=== PATIENT | male | born 1975 | race Caucasian/White ===

== ENCOUNTER 2019-11-27 23:22 | Emergency (ER) | payer MEDICAID ==
[~2019-11-27] VITALS: Ht 180.3 cm; Wt 117.9 kg
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
[2019-11-27] MEDS ORDERED: KEPPRA500 MG ORAL (23:42)
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
[2019-11-28] MEDS ORDERED: HYDROcodone/Acetamin 5/325 tab ORAL ONE
[2019-11-28 00:36] VITALS: BP 115/75
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
[2019-11-28] MEDS ORDERED: NORCO 5-325 TA1 EACH ORAL (02:19)
[2019-11-28] MEDS ORDERED: IBUPROFEN600 MG ORAL (02:19)
--- NOTE | 2019-11-28 02:20 | NUR ---
ED Nurse Note: Patient cleared for discharge by ERMD. Ptient verbalized understanding of discharg3 instuctions, ID band removed. Patient is A&Ox4, ambulatory with crutches and little difficullty. Patient departed with all belongings accompanied by significant other to home via personal vehicle.
[2019-11-28 02:27] VITALS: BP 115/75
== END 2019-11-28 02:28 | disposition home or self-care (01) ==
LOC: EMR 23:50
DX: S82.142A Displaced bicondylar fracture of left tibia, initial encounter for closed fracture (principal); S09.90XA Unspecified injury of head, initial encounter; V03.99XA Pedestrian with other conveyance injured in collision with car, pick-up truck or van, unspecified whether traffic or nontraffic accident, initial encounter; Y92.9 Unspecified place or not applicable; G40.909 Epilepsy, unspecified, not intractable, without status epilepticus
CPT/HCPCS: 70450; 73700; Z7502; 99284

== ENCOUNTER 2019-12-07 00:16 | Emergency (ER) | payer MEDICAID ==
[~2019-12-07] VITALS: Ht 180.3 cm; Wt 113.4 kg
[~2019-12-07 00:16] MED LIST: IBUPROFEN600 MG ORAL; KEPPRA500 MG ORAL; NORCO 5-325 TA1 EACH ORAL
[2019-12-07 00:33] VITALS: BP 144/82
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
[2019-12-07] MEDS ORDERED: GENTAK5 ML RIGHT EYE (00:41)
[2019-12-07] MEDS ORDERED: IBUPROFEN600 MG ORAL (00:41)
[2019-12-07] MEDS ORDERED: AMOXICILLIN500 MG ORAL (00:41)
[2019-12-07 01:25] VITALS: BP 144/82
--- NOTE | 2019-12-07 01:25 | NUR ---
ER Nurse Note: Patient is medically cleared for discharge per ERMD. Discharge instructions and prescriptions explained with repeat verbalization by pt. Emphasized to follow up with primary care physican within 2-4 days. Pt aox4, on room air, with stable vital signs. ID band removed. Brace applied to lower extremity. Pt is able to ambulate with steady gait. Pt took all belongings.
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
== END 2019-12-07 01:25 | disposition home or self-care (01) ==
LOC: EMR 00:36
DX: M84.362D Stress fracture, left tibia, subsequent encounter for fracture with routine healing (principal); H10.9 Unspecified conjunctivitis; L73.9 Follicular disorder, unspecified; G40.909 Epilepsy, unspecified, not intractable, without status epilepticus; X58.XXXD Exposure to other specified factors, subsequent encounter
CPT/HCPCS: 29505; Z7502; 99283